=== PATIENT | male | born 1990 | race Two or more races ===

== ENCOUNTER 2022-07-04 23:51 | Emergency (ER) | payer OTHER ==
[2022-07-05 00:01] VITALS: BP 137/93; PULSE 113; RESP 18; TEMP 99.4; BMI 28.4
== END 2022-07-05 01:39 | disposition home or self-care (01) ==
LOC: FER 23:51
DX: F12.10 Cannabis abuse, uncomplicated (principal)
CPT/HCPCS: 99281-25